=== PATIENT | female | born 1945 | race Caucasian/White ===

== ENCOUNTER 2017-11-11 18:29 | Emergency (ER) | payer OTHER, MEDICAID ==
[2017-11-11 18:41] LABS: % IMMATURE GRANULYOCYTES 0.3 % (0.0-1.1); ABSOLUTE IMMATURE GRANULOCYTES 0.02 10^3/uL (0.00-0.10); ADD DIFF? NO; ADD MORPH? NO; ADD SCAN? NO; ATYPICAL LYMPHOCYTE FLAG 10 (0-99); FRAGMENT RBC FLAG 0 (0-99); HEMATOCRIT 39.2 % (38.0-47.0); HEMOGLOBIN 13.6 g/dL (12.6-16.3); LEFT SHIFT FLG 0 (0-99); LIPEMIA HEMOLYSIS FLAG 90 (0-99); MEAN CELL HEMOGLOBIN 32.6 pg (27.9-34.1); MEAN CELL HEMOGLOBIN CONCENTR. 34.7 g/dL (32.4-36.7); MEAN PLATELET VOLUME 11.9 fL (8.7-11.7); PLATELET CLUMPS FLAG 0 (0-99); PLATELET COUNT 231 10^3/uL (150-400); RED BLOOD CELL COUNT 4.17 10^6/uL (4.18-5.33); RED CELL DISTRIBUTION WIDTH 13.4 % (11.5-15.2)
--- NOTE | 2017-11-11 18:45 | EDPHY ---
H & P Constitutional: Initial Vital Signs Temperature (C) 36.3 C 11/11/17 18:29 Heart Rate 57 L 11/11/17 18:29 Respiratory Rate 16 11/11/17 18:29 Blood Pressure 102/61 11/11/17 18:29 O2 Sat (%) 100 11/11/17 18:29 O2 Delivery Mode Room Air O2 (L/minute) 2 Allergies/Adverse Reactions: No Known Allergies Allergy (Unverified 11/22/13 17:47) Home Medications: Medication Instructions Recorded Paxil Unk Dose 03/02/13 Medical Decision Making ED Course/Re-evaluation: CHIEF COMPLAINT: Intentional overdose HISTORY OF PRESENT ILLNESS: The patient is a 72 y/o female with a history of depression arriving via EMS from the [facility] with somnolence after reported overdose on pills, antifreeze, and vodka. Per EMS , staff reported she has been drinking vodka throughout the day and EMS found several empty bottles of Listerine mouthwash in her room and no evidence of access to antifreeze. She has been unwilling to answer questions about what she consumed, but does admit to depression and told EMS she "wants to be ." She is recalcitrant on initial assessment and will not answer my questions, though she appears to be lucid and follows some commands. She vomited several times en route here. Further history limited by patient's lack of cooperation. REVIEW OF SYSTEMS: Unobtainable as patient is uncooperative. PHYSICAL EXAM: HR, BP, O2 Sat, RR. Temp noted General Appearance: Somnolent, well hydrated, appropriate, and non-toxic appearing. Head: Atraumatic without scalp tenderness or obvious injury Eyes: Pupils equal, round, reactive to light and accommodation, EOMI, no trauma , no injection. Ears: Clear bilaterally, no perforation, normal landmarks Nose: Atraumatic, no rhinorrhea, clear. Throat: Mucus membranes moist. Neck: Supple, non-tender, no lymphadenopathy. Respiratory: No retractions, no distress, no wheezes, and no accessory muscle use. Lungs are clear to auscultation bilaterally. Cardiovascular: Regular rate and rhythm, no murmurs, rubs, or gallops. Good capillary refill all extremities. Gastrointestinal: Abdomen is soft, non-tender, non-distended, no masses, no rebound, no guarding, no peritoneal signs. Musculoskeletal: Normal active ROM of all extremities, atraumatic. Neurological: Somnolent, follows some commands, yells a few answers to questions then refuses to answer questions. Moving all extremities. Skin: No rashes, good turgor, no nodules on palpation. PAST MEDICAL HISTORY: Depression, otherwise unknown PAST SURGICAL HISTORY: Unknown SOCIAL HISTORY: Lives [facility] (pen[facility]) in [place], uses alcohol DIAGNOSTICS/PROCEDURES/CRITICAL CARE TIME: DIFFERENTIAL DIAGNOSIS: The differential diagnosis for the patient's altered mental status included but was not limited to hypoglycemia, infectious process, electrolyte abnormality, head injury, neurologic process, anemia, cardiac process, and intoxicants. MEDICAL DECISION MAKING: This is a 72 y/o female with a history of depression who presents for evaluation of somnolence following intentional overdose of "pills," vodka, and antifreeze as reported by the patient. There were numerous empty mouthwash bottles on scene and no sign of access to antifreeze per EMS. She seems to be lucid and able to follow commands if she wants to, but is not responding to most questions. No signs of focal neuro deficit or trauma on exam. IV established by EMS. Labs drawn including serum osmolality, ethylene glycol level , EtOH level, acetaminophen level, and salicylate level. If she has been drinking vodka throughout the day and did have access to antifreeze, she may have already neutralized any ethylene glycol in her system. EtOH serum is 261. Anion gap is only 17, which means it's unlikely she has an ethylene glycol overdose. dinh 48. This patient has an osmol gap of only 6 and no significant anion gap. It is doubtful that she took ethylene glycol. Even if she did her alcohol level is 260 and that would more than enough to be a competitive inhibitor. When she sober she will have psychiatric evaluation for her suicidality. I am turning this turned over to Dr. Diego Fink at shift change (Marco Antonio Kirby) Patient was seen and evaluated by Kash SIFUENTES. At this point she is not expressing suicidal ideation. She has been medically cleared previously by Dr. Kirby. She denies at this point ingesting any other alcohols. 11:30 Hold vacated by MARIA/ Dr Cancino. Patient is discharged with her daughter. Please see documentation as per mental health notations. (Marylin Love) 22:10 care assumed by me from Dr. Kirby. Patient presenting with depression and ingestion of possible ethylene glycol. She does not have an osmolar gap at this time. Patient is intoxicated from alcohol. She will need a sober evaluation. 0700 patient signed out to Dr. Love pending mental health evaluation. There been no issues during my care this patient overnight. (Prateek Grover) - Data Points Laboratory Results: Laboratory Results 11/11/17 18:29 11/11/17 18:29 Departure - Departure Disposition: Home, Routine, Self-Care Clinical Impression: Alcoholism, Suicidal ideation Condition: Good Instructions: Depression (ED), Suicide Prevention for Older Adults (ED) Additional Instructions: Please follow up as directed by [facility]. Referrals: Patient,NotPresent [Unknown] - As per Instructions Report Scribed for: Marco Antonio Kirby Report Scribed by: Zully Fields Date of Report: 11/11/17 Time of Report: 18:56
[2017-11-11 19:02] LABS: ANION GAP 17 mEq/L (8-16); CALCIUM 9.2 mg/dL (8.5-10.4); CARBON DIOXIDE 22 mEq/l (22-31); CHLORIDE 106 mEq/L (97-110); CREATININE 0.8 mg/dL (0.6-1.0); ETHANOL SERUM 261 mg/dL (0-10); GLOMERULAR FILTRATION RATE > 60; GLUCOSE 93 mg/dL (70-100); POTASSIUM 3.6 mEq/L (3.5-5.2); SALICYLATE < 1.0 mg/dL (2.0-20.0); SODIUM 145 mEq/L (134-144)
[2017-11-12 08:52] VITALS: RESP 16; TEMP 98.2
--- NOTE | 2017-11-12 12:10 | ASDISCHSUM ---
Discharge Information Plan Status:Intermediate Medically Cleared to Leave: Discharge Date: CM D/C Disposition:Home, Routine, Self-Care ADT D/C Disposition:Home, Routine, Self-Care Projected Discharge Date: Transportation at D/C:Family Discharge Delay Reason: Follow-Up Date: Discharge Slot: Final Diagnosis: Placement Information Patient Contact Information Contact Name:DANIE Relationship:Daughter Address: Work Phone: City: Alternate Phone: State/Zip Code:[place] Email: Financial Information Financial Class: Primary Plan Desc:MEDICARE OUTPATIENT Primary Plan Number:[id number] Secondary Plan Desc:MEDICA[place] Secondary Plan Number:[id number] Assessment Information LACE LACE Acuity / Level of Care Answers: No. Emergency dept visits in Answers: 1 last 6 months Score: 1 Date Signed: 11/12/2017 12:09 PM Electronically Signed By:Bobbi Heller RN Intervention Information
[2017-11-12 13:38] VITALS: BP 114/62; PULSE 75; O2SAT 97
[2017-11-13 11:29] LABS: PROPYLENE GLYCOL < 10 mg/dL (NODETECT)
== END 2017-11-12 13:37 | disposition home or self-care (01) ==
LOC: EDUNIT#
DX: T50.992A Poisoning by other drugs, medicaments and biological substances, intentional self-harm, initial encounter (principal); F10.20 Alcohol dependence, uncomplicated
CPT/HCPCS: 80305; 82693-90; G0480